=== PATIENT | female | born 1940 | race Caucasian/White ===

== ENCOUNTER → 2017-08-25 | Outpatient (CLI) | payer MEDICARE, BC ==
[~2017-08-25] MED LIST: ASPIR-LOW81 MG PO; FISH OIL CONC1000 MG PO; FOSAMAX 10M10 MG/TAB PO; MVI PO; OSCAL 500MG/VI500 MG PO; TUMS 5001250 MG PO
== END ==
LOC: MC.RAD 09:14
DX: Z12.31 Encounter for screening mammogram for malignant neoplasm of breast (principal)

== ENCOUNTER → 2018-09-07 | Outpatient (CLI) | payer MEDICARE, BC | LOC: MC.RAD 08:40 | DX: Z12.31 Encounter for screening mammogram for malignant neoplasm of breast (principal) ==